=== PATIENT | male | born 1990 | race Caucasian/White ===

== ENCOUNTER 2024-06-11 10:06 | Emergency (ER) | payer MEDICAID, SELFPAY ==
[2024-06-11 10:08] VITALS: BP 123/76; PULSE 65; RESP 18; TEMP 36.4; O2SAT 99; BMI 24.4
--- NOTE | 2024-06-11 10:35 | EX.ED.DYSGE1 ---
HPI History of Present Illness Chief Complaint: Abscess Informant: patient Narrative Narrative: Tender swollen area left axilla states it started as a pimple about a month ago thought it was an ingrown hair but it gradually became worse in the past several days especially. No spontaneous drainage. States his mother tried to pop it but has not had success and it was very painful to try to do so. No systemic symptoms. Never had this before. PFSH PFSH Medical History no medical history no medical history Home Medications ?Medication ?Instructions ?Recorded ?Last Taken ?Type sulfamethoxazole 800 1 tab PO BID #14 TABLETS 06/11/24 Unknown Rx mg-trimethoprim 160 mg tablet Allergy/AdvReac Type Severity Reaction Status Date / Time No Known Allergies Allergy Verified 06/11/24 10:07 Family History no significant family his Surgical History no surgical history Social History household members: family housing: house Smoking Status: Current every day smoker tobacco type: cigarettes ROS ROS ED Constitutional Constitutional ED: Denies chills or fever(s) Integumentary Reports abscess Neurologic Neurologic: Denies headache(s), paresthesias or weakness EXAM Physical Exam Const Vital Signs: 06/11/24 10:08 Temperature 97.6 F L Temperature Source Oral Pulse Rate 65 Respiratory Rate 18 Blood Pressure 123/76 H Blood Pressure Mean 91 Pulse Ox 99 Oxygen Delivery Method Room Air Positive well nourished and well developed General Appearance ED: well developed and NAD Neck supple Resp normal respiratory effort Extremity Extremity Narrative: Just caudal to the left axilla proper, more on the chest wall, but still within the axillary hair is what appears to be a 2 cm diameter abscess with a small amount of surrounding cellulitis, it is pointing not spontaneously draining, and erythematous and tender. Neuro oriented x3, CN's II-XII intact bilaterally and no sensory deficits noted Motor Exam: strength 5/5 throughout Psych mental status grossly normal Skin no wounds Skin Narrative: Abscess left chest wall/axilla see above MDM MDM MDM Narrative Medical decision making narrative: Incision and drainage of abscess performed, see the procedure note. It was packed and he was given appropriate instructions started on Bactrim suspecting MRSA. Procedures Other Procedures Procedure(s): Complex abscess incision and drainage left axilla: After informed consent from the patient discussing pros and cons, prepped locally with isopropanol followed by chlorhexidine, locally anesthetized with 3 cc plain 1% lidocaine, and incised centrally with a #10 blade. Large amount of purulent material was expressed. The cavity was limited and relatively shallow, it was probed and deloculated, irrigated with 20 cc of sterile saline, and packed with quarter inch sterile gauze and dressed with gauze. Tolerated well no complications. Discharge Plan Triage Chief Complaint: Abscess ED Provider: Speedy Barbour Dx/Rx/DC Orders Clinical Impression: Abscess of left axilla Instructions: ED Abscess Incision And Drainage Prescriptions: New sulfamethoxazole-trimethoprim 800-160 mg tablet 1 tab PO BID Qty: 14 0RF Primary Care Provider: Care Physician,No Primary Referrals: Doctor,Your [Non-Staff] - As Needed Activity Restrictions/Additional Instructions: Try to leave packing intact for 48 hours and then remove and discard. If it falls out earlier than that, do not worry about it, just continue dressing changes. If there is any water that gets into the area after a shower or what not, you may gently apply pressure to the surrounding area to express it prior to a new dressing change. Antibiotic ointment on the area with these dressing changes okay as well. If you are concerned about it recurring or getting worse, return to the ER for reevaluation. Print Language: [place] Disposition Disposition: Home, Self Care
[2024-06-11] MEDS: Lidocaine 1% (20 ml mdv) 20 ML Vial INFILT (10:40)
[2024-06-11] MEDS: Smz/Tmp Ds Tablet 1 TABLET PO (10:41)
[2024-06-11 12:29] VITALS: BP 120/77; PULSE 72; RESP 16; TEMP 36.6; O2SAT 98
== END 2024-06-11 12:39 | disposition home or self-care (01) ==
PROVIDERS: Emergency Provider Emergency Medicine; Visit Provider Emergency Medicine
DX: L02.412 Cutaneous abscess of left axilla (principal); L03.112 Cellulitis of left axilla; F17.210 Nicotine dependence, cigarettes, uncomplicated
CPT/HCPCS: 10061; 10060; 99282

== ENCOUNTER 2025-03-02 09:02 | Emergency (ER) | payer OTHER, MEDICAID, SELFPAY ==
[2025-03-02 09:02] VITALS: BP 127/73; PULSE 50; RESP 16; TEMP 36.3; O2SAT 100; BMI 21.7
--- NOTE | 2025-03-02 09:34 | EX.ED.GENINJ ---
HPI History of Present Illness Chief Complaint: Back Narrative Narrative: 34-year-old male who denies significant past medical history presents with injury to his thoracic spine that he sustained at work this morning at around 8:00, approximately an hour and a half ago. 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 He was moving a 10 pack of heavy fan blades today, trying to push it forward on the table. He states initially he felt burning pain, no pop or crack, and now has pain on his spine and between his shoulder blades. He states it took his breath away momentarily. As he has been sitting filling out paperwork, his pain is improving. He denies other injury. No radiation to arms. PFSH PFS Medical History no medical history Home Medications ?Medication ?Instructions ?Recorded ?Last Taken ?Type sulfamethoxazole 800 1 tab PO BID #14 TABLETS 06/11/24 Unknown Rx mg-trimethoprim 160 mg tablet Allergy/AdvReac Type Severity Reaction Status Date / Time No Known Allergies Allergy Verified 03/02/25 09:04 Surgical History no surgical history Social History household members: family housing: house Smoking Status: Current every day smoker tobacco type: cigarettes ROS ROS ED ROS Narrative Review of systems positive for thoracic back pain between shoulder blades, initially burning, worse with movement and sitting upright. Mildly improving. Denies other injury. No radiation to arms. EXAM Physical Exam Narrative Exam Narrative: GCS 15. ABCs intact. Cardio examination reveals bradycardia. Lungs clear to auscultation bilaterally. Abdomen soft and nontender. Neurological examination is nonfocal, nonlateralizing. Moves all extremities. Able to stand and transfer and sit upright. Inspection of the back reveals mild tenderness to palpation and vertebral point tenderness of the thoracic spine, no step-off. Able to move arms. Const Vital Signs: 03/02/25 09:02 03/02/25 11:10 Temperature 97.4 F L 97.4 F L Temperature Source Temporal Pulse Rate 50 L 50 L Respiratory Rate 16 16 Blood Pressure 127/73 H 127/73 H Blood Pressure Mean 91 91 Pulse Ox 100 100 Oxygen Delivery Method Room Air MDM MDM MDM Narrative Medical decision making narrative: Differential diagnosis includes but not limited to thoracic spine strain versus sprain of ligaments versus vertebral point fracture. However, there is been no direct trauma. Patient was given oral naproxen and 1 Norflex tablet here. He will be given a note to be off work for the rest of the day, the day of his injury and [facility] to [facility]. He will be given limitations such as no lifting over 10 pounds and activity as tolerated until cleared by [facility]. He can take [id number] medications as needed. X-rays were obtained of the thoracic spine. They were interpreted by myself independently. I see no evidence of an acute fracture. I reviewed the radiology report which confirms my independent interpretation, no significant arthritic process or disc space narrowing of the thoracic spine. Upon repeat examination after oral muscle relaxer and anti-inflammatory, he states he feels improved. He will take [id number] medications as needed. He was referred to the [facility]. He was given the rest of the day off of work, the day of his injury. He was written back to work for tomorrow with restrictions including no carrying over 10 pounds, limited use of his bilateral upper extremities and activity as tolerated. I feel he can be discharged to follow-up with [facility] provider. Return instructions were reviewed. Disposition is discharged home, in stable condition. History & Record Review Discussion w/independent historian: Patient Radiography Diagnostic Testing: Clinical Impression(s) from Imaging Studies Thoracic Spine X-Ray 03/02/25 10:28 IMPRESSION: Mild degenerative changes are seen upon limited imaging of the cervical spine. The thoracic spine shows no significant arthritic process or disc space narrowing. No acute fracture, subluxation, or paraspinous line widening is noted Reading Location: [address] Discharge Plan Triage Chief Complaint: Back ED Provider: Liu Narayan Dx/Rx/DC Orders Clinical Impression: Sprain of thoracic spine, Strain of thoracic back region Instructions: ED Thoracic Spine Strain Prescriptions: No Action sulfamethoxazole-trimethoprim 800-160 mg tablet 1 tab PO BID Qty: 14 0RF Primary Care Provider: Care Physician,No Primary Referrals: [facility] [Provider Group] - 1-2 Days if not improving Care Physician,No Primary [Primary Care Provider] - Activity Restrictions/Additional Instructions: Take [id number] ibuprofen as directed. Heat and ice alternatively to affected area. Follow-up with the [facility] regarding workability. Off work today, March 02, 2025, the day of your injury. Return tomorrow with the restrictions given. Print Language: [place] Disposition Disposition: Home, Self Care Discharge Date/Time: 03/02/25 11:15
[2025-03-02] MEDS: Orphenadrine 100 MG Tablet PO (10:21)
--- NOTE | 2025-03-02 10:28 | RAD_ITS ---
PROCEDURE: THORACIC SPINE 3 VIEWS 03/02/2025 REASON FOR EXAM: PAIN, TRAUMA TECHNIQUE: THORACIC SPINE 3 VIEWS COMPARISON: None. RAD/Thoracic Spine 3 Views IMPRESSION: Mild degenerative changes are seen upon limited imaging of the cervical spine. The thoracic spine shows no significant arthritic process or disc space narrowi ng. No acute fracture, subluxation, or paraspinous line widening is noted Reading Location: [address]
[2025-03-02 11:10] VITALS: BP 127/73; PULSE 50; RESP 16; TEMP 36.3; O2SAT 100
== END 2025-03-02 11:15 | disposition home or self-care (01) ==
PROVIDERS: Emergency Provider Emergency Medicine; Visit Provider Emergency Medicine
DX: S23.3XXA Sprain of ligaments of thoracic spine, initial encounter (principal); S29.012A Strain of muscle and tendon of back wall of thorax, initial encounter; X50.9XXA Other and unspecified overexertion or strenuous movements or postures, initial encounter; Y99.0 Civilian activity done for income or pay; F17.210 Nicotine dependence, cigarettes, uncomplicated
CPT/HCPCS: 72072; 99282